=== PATIENT | male | born 1960 | race Caucasian/White ===

== ENCOUNTER → 2017-03-28 | Outpatient (CLI) | payer BC, OTHER ==
--- NOTE | 2017-03-28 14:03 | REP ---
CERVICAL SPINE, SEVEN VIEWS: HISTORY: Cervicalgia. There is no open mouth view. The cervical spine is visualized from C1 to the C5-6 level in the lateral radiographs. There is no acute fracture. The C5-6 intervertebral disc is decreased in height consistent with disc degeneration. Osteophytes are present in C4 and 5. The neural foramina are patent. There are 3 mm of anterior subluxation of C2 on 3. This is unchanged with flexion and reduces with extension. IMPRESSION: Degenerative change as described above. Signed by Rivera Morelos MD 03/28/2017 02:06 P
[2017-03-28 14:41] LABS: MEAN CORPUSCULAR HEMOGLOBIN 30.6 pg (27.0-33.0); MEAN CORPUSCULAR VOLUME 90.3 fl (80.0-96.0); RED CELL DISTRIBUTION WIDTH 13.5 % (11.5-14.5); WHITE BLOOD COUNT 9.6 K/mm3 (4.0-10.0)
[2017-03-28 14:57] LABS: ALBUMIN 3.8 GM/DL (3.2-5.2); ALBUMIN/GLOBULIN RATIO 1.19 (1.00-1.93); ALKALINE PHOSPHATASE 63 U/L (45-117); ALT/SGPT 22 U/L (12-78); ANION GAP 11 MEQ/L (8-16); AST/SGOT 15 U/L (15-37); BILIRUBIN,TOTAL 0.4 MG/DL (0.2-1.0); BLOOD UREA NITROGEN 15 MG/DL (7-18); CALCIUM LEVEL 9.5 MG/DL (8.5-10.1); CARBON DIOXIDE LEVEL 26 MEQ/L (21-32); CHLORIDE LEVEL 109 MEQ/L (98-107); CREATININE FOR GFR 1.04 MG/DL (0.70-1.30); GLOMERULAR FILTRATION RATE > 60.0 (>56); GLUCOSE, FASTING 99 MG/DL (70-105); POTASSIUM SERUM 4.5 MEQ/L (3.5-5.1); SODIUM LEVEL 146 MEQ/L (136-145)
[2017-03-28 15:33] LABS: BASOPHILS 1 % (0-4); EOSINOPHILS 2 % (0-5)
[2017-04-01 00:06] LABS: Lyme Disease IgG/IgM Antibodie <0.91 ISR (0.00-0.90); Lyme Disease IgM Ab Quantitati <0.80 index (0.00-0.79)
--- NOTE | 2017-04-08 08:06 | REP ---
Clinical: Chest pain. Myalgia. Technique: PA and lateral. Comparison: 11/11/2010. Findings: Examination is made available on 04/08/2017. Mediastinum and cardiac silhouette are stable and mild cardiomegaly is suggested. Lung murdock demonstrate chronic interstitial changes without focal consolidation, effusion, or pneumothorax. Skeletal structures intact. Impression: Cardiomegaly suggested along with chronic interstitial changes. Signed by Mike Horner MD 04/08/2017 07:57 A
== END ==
LOC: M WUC 12:38
PROVIDERS: ATTEND Physician Assistant
DX: M79.1 Myalgia (principal); M50.322 Other cervical disc degeneration at C5-C6 level; I51.7 Cardiomegaly; J98.4 Other disorders of lung

== ENCOUNTER → 2018-10-31 | Outpatient (CLI) | payer MEDICARE, BC, OTHER ==
--- NOTE | 2018-10-31 15:23 | REP ---
Clinical: Cough and fever . Comparison: 03/28/2017 . Technique: PA and lateral. Findings: The mediastinum and cardiac silhouette are normal. The lung murdock the straight chronic-appearing changes without acute consolidation, effusion, or pneumothorax. The skeletal structures are intact and normal. Impression: 1. No focal consolidation. Electronically Signed by Mike Horner MD 10/31/2018 03:15 P
== END ==
LOC: M WUC 14:59
PROVIDERS: ATTEND Physician Assistant
DX: R05 Cough (principal); R50.9 Fever, unspecified

== ENCOUNTER → 2018-11-29 | Outpatient (REF) | payer MEDICARE, OTHER ==
[2018-12-03 00:06] LABS: PANCREATIC ELASTASE STOOL >500 (>200)
== END ==
LOC: M LAB REF 13:19
PROVIDERS: ATTEND Internal Medicine Gastroenterology
DX: R19.4 Change in bowel habit (principal); Z86.010 Personal history of colon polyps; K44.9 Diaphragmatic hernia without obstruction or gangrene

== ENCOUNTER → 2018-12-25 | Outpatient (CLI) | payer MEDICARE, BC, OTHER ==
--- NOTE | 2018-12-25 12:24 | REP ---
Clinical: Shortness of breath. Technique: PA and lateral. Comparison: 10/31/2018. Findings: Stable cardiomegaly and diffuse chronic interstitial changes are appreciated. Superimposed diffuse bronchitis and/or pulmonary vascular congestion/interstitial edema cannot be excluded. Lateral view demonstrates small pleural effusion. No focal consolidation. No pneumothorax. Skeletal structures stable. Impression: Cardiomegaly with pulmonary vascular congestion/interstitial edema and/or bronchitis. Small pleural effusion on lateral radiograph noted. Electronically Signed by Mike Horner MD 12/25/2018 12:17 P
[2018-12-25 18:15] LABS: BASO # 0.1 10^3/uL (0.0-0.2); BASO % 0.6 % (0.0-1.0); EOS # 0.2 10^3/uL (0.0-0.50); EOS % 1.9 % (0.0-3.0); HEMATOCRIT 41.6 % (42.0-52.0); HEMOGLOBIN 13.5 g/dl (13.5-17.5); LYMPH # 2.1 10^3/uL (1.5-4.5); LYMPH % 22.2 % (24.0-44.0); MEAN CORPUSCULAR HEMOGLOBIN 29.5 pg (27.0-33.0); MEAN CORPUSCULAR HGB CONC 32.5 g/dl (32.0-36.5); MONO # 0.8 10^3/uL (0.0-0.8); MONO % 8.4 % (0.0-5.0); NEUTROPHILS # 6.2 10^3/uL (1.8-7.7); NEUTROPHILS % 66.4 % (36.0-66.0); PLATELET COUNT, AUTOMATED 226 10^3/uL (150-450); RED BLOOD COUNT 4.57 10^6/uL (4.30-6.10); WHITE BLOOD COUNT 9.4 10^3/uL (4.0-10.0)
[2018-12-25 18:28] LABS: BLOOD UREA NITROGEN 25 MG/DL (7-18); CALCIUM LEVEL 8.7 MG/DL (8.5-10.1); CARBON DIOXIDE LEVEL 30 MEQ/L (21-32); CHLORIDE LEVEL 110 MEQ/L (98-107); CREATININE FOR GFR 0.88 MG/DL (0.70-1.30); GLOMERULAR FILTRATION RATE > 60.0 (>56); GLUCOSE, FASTING 105 MG/DL (70-100); NT-PRO BNP 239 PG/ML (<125); POTASSIUM SERUM 4.8 MEQ/L (3.5-5.1); SODIUM LEVEL 143 MEQ/L (136-145)
== END ==
LOC: M WUC 11:39
PROVIDERS: ATTEND Physician Assistant
DX: I51.7 Cardiomegaly (principal); J90 Pleural effusion, not elsewhere classified; R06.02 Shortness of breath

== ENCOUNTER → 2020-09-06 | Outpatient (CLI) | payer SELFPAY | LOC: M LABSMTC 10:54 | PROVIDERS: ATTEND Pediatrics | DX: Z20.822 Contact with and (suspected) exposure to COVID-19 (principal) ==

== ENCOUNTER → 2021-10-12 | Outpatient (REF) | payer MEDICARE, BC, OTHER | LOC: M WUC 16:36 | PROVIDERS: ATTEND Physician Assistant | DX: N39.0 Urinary tract infection, site not specified (principal) ==

== ENCOUNTER → 2021-10-12 | Outpatient (CLI) | payer MEDICARE, BC, OTHER | LOC: M RAD 14:14 | PROVIDERS: ATTEND Physician Assistant | DX: N23 Unspecified renal colic (principal); N39.0 Urinary tract infection, site not specified ==

== ENCOUNTER → 2023-02-26 | Outpatient (CLI) | payer MEDICARE, BC, OTHER | LOC: M RAD 11:10 | PROVIDERS: ATTEND Internal Medicine Gastroenterology | DX: R10.10 Upper abdominal pain, unspecified (principal); K31.89 Other diseases of stomach and duodenum; K31.7 Polyp of stomach and duodenum; K21.9 Gastro-esophageal reflux disease without esophagitis; R11.0 Nausea | CPT/HCPCS: 78264; A9541 ==

== ENCOUNTER → 2023-10-22 | Outpatient (CLI) | payer MEDICARE, BC, OTHER | LOC: M WUC 11:27 | PROVIDERS: ATTEND Physician Assistant | DX: R06.02 Shortness of breath (principal); R05.3 Chronic cough ==

== ENCOUNTER → 2023-10-27 | Outpatient (CLI) | payer MEDICARE, BC | LOC: M RAD 08:04 | PROVIDERS: ATTEND Physician Assistant | DX: R05.3 Chronic cough (principal); R06.02 Shortness of breath ==

== ENCOUNTER → 2024-01-25 | Outpatient (CLI) | payer MEDICARE, BC ==
[2024-01-25 17:58] LABS: HEMOGLOBIN A1c 6.4 % (4.0-6.0)
== END ==
LOC: M WUC 11:27
PROVIDERS: ATTEND Physician Assistant
DX: M79.642 Pain in left hand (principal)

== ENCOUNTER → 2024-02-03 | Outpatient (CLI) | payer MEDICARE, BC | LOC: M PLAIMG 08:57 | PROVIDERS: ATTEND Physician Assistant | DX: R91.8 Other nonspecific abnormal finding of lung field (principal) ==

== ENCOUNTER → 2024-10-06 | Outpatient (CLI) | payer MEDICARE, BC | LOC: M RAD 10:09 | PROVIDERS: ATTEND Nurse Practitioner Adult Health | DX: Z87.891 Personal history of nicotine dependence (principal) ==